=== PATIENT | female | born 1985 | race Caucasian/White ===

== ENCOUNTER 2023-09-29 08:34 | Observation (INO) ==
[2023-09-29] MEDS: Lactated Ringers 1000 ml BAG 1,000 ML IV ONE ×2 (09:18→11:02)
[2023-09-29 09:51] LABS: INR 1.05 (0.83-1.13)
[2023-09-29 09:58] LABS: ABS Basophils 0.1 10^3/uL (0.0-0.1); ABS Eosinophils 0.2 10^3/uL (0.0-0.5); ABS Lymphocytes 1.8 10^3/uL (1.0-4.8); ABS Monocytes 0.8 10^3/uL (0.0-0.9); ABS Neutrophils 7.5 10^3/uL (1.5-7.6); ABS Nucleated RBC 0.01 10^3/ul; Eosinophil % 1.9 %; Hemoglobin 15.1 g/dL (11.5-14.3); Lymphocyte % 17.2 %; Mean Corpuscular Hemoglobin 30.5 pg (27-33); Mean Corpuscular Hgb Conc 35.1 g/dL (31-36); Mean Corpuscular Volume 86.8 fL (80-97); Mean Platelet Volume 8.2 fL (7.5-11.2); Nucleated Red Blood Cells % 0.1 %/100WBC (0.0-0.8); Platelet Count 364 10^3/uL (150-450); Red Blood Count 4.95 10^6/uL (3.63-4.92); White Blood Count 10.4 10^3/uL (3.8-11.8)
[2023-09-29 10:01] LABS: High Sens Troponin Baseline < 3 pg/mL (<15)
[2023-09-29 10:05] LABS: ALT 4 U/L (7-52); AST 12 U/L (13-39); Albumin 4.7 g/dL (3.2-5.2); Albumin/Globulin Ratio 1.6 (1-3); Alkaline Phosphatase 42 U/L (35-149); Anion Gap 15 mmol/L (2-16); Blood Urea Nitrogen 13 mg/dL (6-24); CO2 Carbon Dioxide 22 mmol/L (22-32); Chloride 99 mmol/L (101-111); Creatinine, Serum 0.93 mg/dL (0.51-0.95); Glucose 105 mg/dL (70-100); Sodium 136 mmol/L (135-145); Total Protein 7.7 g/dL (6.4-8.9); eGFR CKD-EPI 81.7 (>60)
[2023-09-29 10:09] LABS: HCG Pregnancy < 0.60 mIU/mL
[2023-09-29 10:14] LABS: T4, Total 18.18 mcg/dL (6.09-12.23)
[2023-09-29 10:18] LABS: TSH Ultra Thyroid Stim Horm 2.57 mcIU/mL (0.34-5.60)
[2023-09-29 11:05] LABS: High Sensitivity Troponin 1 Hr < 3 pg/mL (<15)
[2023-09-29] MEDS: Ondansetron 4 mg VIAL 2 MG/ML 2 ml VIAL IV ONE (12:17)
[2023-09-29] MEDS: Iohexol 350 (CONTRAST) 500 ML MDV IV ONE (12:48)
[2023-09-29 15:26] LABS: Total T3 151 ng/dL (87-178)
[2023-09-29 18:33] LABS: Free T4 1.29 ng/dL (0.61-1.12)
[2023-09-30 12:39] VITALS: BP 116/86
== END 2023-09-30 12:40 | disposition home or self-care (01) ==
LOC: EDHOLD 08:34 → ED 08:34 → SUATTDRO 21:24 → EDHOLD 09-30 12:39
PROVIDERS: ADMIT Physician Assistant; ATTEND Internal Medicine